=== PATIENT | male | born 1980 ===

== ENCOUNTER 2018-07-04 20:50 | Emergency (ER) | payer SELFPAY ==
[~2018-07-04] VITALS: Ht 154.9 cm; Wt 81.8 kg
[2018-07-04 20:56] VITALS: BP 160/103; PULSE 100; RESP 18; Ht 154.9 cm; Wt 81.8 kg
== END 2018-07-05 04:22 | disposition left against medical advice (07) ==
LOC: FTE 20:50
DX: Z53.21 Procedure and treatment not carried out due to patient leaving prior to being seen by health care provider (principal)